=== PATIENT | female | born 1965 | race Caucasian/White ===

== ENCOUNTER → 2018-01-28 | Day surgery (SDC) | payer BC ==
[2018-01-22 15:58] VITALS: BMI 39.1
[~2018-01-28] MED LIST: PROPOFOL 10 MG/ML 20 ML VIAL IV ONE
--- NOTE | 2018-01-28 14:00 | PCN ---
PROCEDURE NOTE REQUESTING PHYSICIAN: Farrukh Shay INDICATION: The patient is a 52-year-old pleasant white female scheduled for an elective colonoscopy as part of screening for colorectal neoplasia. PROCEDURE PERFORMED: Colonoscopy. PREOPERATIVE DIAGNOSIS: Screening for colon cancer. IV sedation by Anesthesia. PROCEDURE: After informed consent was obtained from the patient, she was brought into the endoscopy unit. IV conscious sedation was administered by anesthesia under continuous monitoring. Initial rectal examination was normal. The Olympus CA190 videocolonoscope was then inserted into the rectum and gradually advanced to the cecum without any difficulty. Careful examination was performed as the scope was gradually being withdrawn. The ileocecal valve and appendiceal orifice were visualized and appeared normal. The prep was excellent. Mucosa of the cecum, ascending colon, transverse colon, descending colon, sigmoid colon and rectum appeared normal. In the rectum, retroflexion was performed and small internal hemorrhoids were seen. The patient tolerated the procedure well. IMPRESSION: 1. Small internal hemorrhoids. 2. No evidence of colorectal neoplasia. RECOMMENDATION: Findings of this examination were discussed with the patient as well as her family. She was advised to be on a high-fiber diet and take fiber supplements on a regular basis. She can have a repeat colonoscopy in 10 years. MMODL / IJN: [id number] /
== END ==
LOC: ORWHC2ENDO 08:10 → EDSEX 08:10
PROVIDERS: ATTEND Internal Medicine Gastroenterology
DX: Z12.11 Encounter for screening for malignant neoplasm of colon (principal); K64.8 Other hemorrhoids; I10 Essential (primary) hypertension; Z79.899 Other long term (current) drug therapy; R60.9 Edema, unspecified
CPT/HCPCS: J2704; G0121; 45378